=== PATIENT | female | born 1985 | race Caucasian/White ===

== ENCOUNTER 2016-03-21 20:07 | Emergency (ER) | payer OTHER ==
[~2016-03-21] VITALS: Ht 167.6 cm; Wt 87.0 kg
[2016-03-21 21:12] LABS: HEMATOCRIT 39.4 % (36.0-46.0); MCH 29.2 PG (29.0-34.0); MCV 83.5 FL (83-99); MEAN PLAT.VOLUME 9.2 uM^3 (9.5-12.4); PLATELET COUNT 381 K/uL (156-360); RBC DIS.WIDTH-CV 12.6 % (11.8-14.6); RBC DIS.WIDTH-SD 37.6 % (39-53); RED BLOOD COUNT 4.72 M/uL (3.80-5.20); WHITE BLOOD COUNT 7.2 K/uL (4.1-10.2)
[2016-03-21 21:20] LABS: CHLORIDE 106 mEq/L (99-109); POTASSIUM 4.1 mEq/L (3.7-5.4); SODIUM 140 mEq/L (136-147)
[2016-03-21 21:22] LABS: GLUCOSE 91 mg/dL (70-99)
[2016-03-21 21:23] LABS: ANION GAP 10 MEQ/L (2-14)
[2016-03-21 21:26] LABS: GFR ESTIMATE (CALCULATED) > 59 mL/min/; UREA NITROGEN (BUN) 13 mg/dL (9-23)
[2016-03-21] MEDS ORDERED: LEVAQUIN500 MG PO (21:47)
[2016-03-21] MEDS ORDERED: MEDROL DOSEPAK4 MG PO (21:47)
[2016-03-21 22:33] VITALS: BP 133/71
== END 2016-03-21 22:34 | disposition home or self-care (01) ==
LOC: EME 20:07
DX: J20.9 Acute bronchitis, unspecified (principal); H66.91 Otitis media, unspecified, right ear; Z87.891 Personal history of nicotine dependence; Z88.1 Allergy status to other antibiotic agents
CPT/HCPCS: 71020; 80048; 85027; 93005; 99281; 99284; J7512

== ENCOUNTER 2017-01-11 07:48 | Emergency (ER) | payer OTHER ==
[~2017-01-11] VITALS: Ht 167.6 cm; Wt 95.7 kg
[~2017-01-11 07:48] MED LIST: LEVAQUIN500 MG PO; MEDROL DOSEPAK4 MG PO
[2017-01-11] MEDS ORDERED: FIORICET 50-301 EAC1 PO (09:49)
[2017-01-11 10:11] VITALS: BP 130/71
== END 2017-01-11 10:00 | disposition home or self-care (01) ==
LOC: EME 07:48
DX: G43.909 Migraine, unspecified, not intractable, without status migrainosus (principal); H91.91 Unspecified hearing loss, right ear; Z87.891 Personal history of nicotine dependence
CPT/HCPCS: 99281; 99285; J1885; J2765; J7030

== ENCOUNTER 2017-04-15 02:04 | Emergency (ER) | payer OTHER ==
[~2017-04-15] VITALS: Ht 167.6 cm; Wt 95.6 kg
[~2017-04-15 02:04] MED LIST changes: +FIORICET 50-301 EAC1 PO
[2017-04-15] MEDS ORDERED: AUGMENTIN875 MG PO (02:50)
[2017-04-15 02:57] VITALS: BP 133/83
== END 2017-04-15 02:58 | disposition home or self-care (01) ==
LOC: EME 02:04
DX: H66.91 Otitis media, unspecified, right ear (principal); H69.80 Other specified disorders of Eustachian tube, unspecified ear; J02.9 Acute pharyngitis, unspecified; H91.91 Unspecified hearing loss, right ear; H93.8X9 Other specified disorders of ear, unspecified ear; Z87.891 Personal history of nicotine dependence; Z90.49 Acquired absence of other specified parts of digestive tract; Z88.1 Allergy status to other antibiotic agents
CPT/HCPCS: 99281; 99283

== ENCOUNTER → 2017-05-10 | Outpatient (CLI) | payer OTHER ==
[~2017-05-10] MED LIST changes: +AUGMENTIN875 MG PO
== END | disposition home or self-care (01) ==
LOC: RAD 11:00
DX: R07.9 Chest pain, unspecified (principal)
CPT/HCPCS: 71275

== ENCOUNTER → 2017-09-07 | Outpatient (CLI) | payer OTHER | END | disposition home or self-care (01) | LOC: NUC 08:26 | DX: K31.84 Gastroparesis (principal); R13.10 Dysphagia, unspecified; K58.0 Irritable bowel syndrome with diarrhea | CPT/HCPCS: 78264; A9541 ==